=== PATIENT | female | born 1990 | race Two or more races ===

== ENCOUNTER 2018-07-07 21:20 | Emergency (ER) | payer SELFPAY ==
[~2018-07-07] VITALS: Ht 165.1 cm; Wt 73.5 kg
[2018-07-07 21:53] VITALS: BP 112/65
== END 2018-07-08 01:46 | disposition home or self-care (01) ==
LOC: EDBD 21:23 → ER 21:23
DX: S23.41XA Sprain of ribs, initial encounter (principal); X58.XXXA Exposure to other specified factors, initial encounter; Y93.89 Activity, other specified; Y99.8 Other external cause status; Y92.89 Other specified places as the place of occurrence of the external cause
CPT/HCPCS: 71101; 81025